=== PATIENT | female | born 1960 | race American Indian/Alaskan Native ===

== ENCOUNTER 2019-10-10 16:42 | Emergency (ER) | payer SELFPAY ==
--- NOTE | 2019-10-10 16:48 | Emergency Department Report ---
Blank Doc - Documentation Documentation: 59-year-old female that presents with unsteady gait and family member stated has difficulty speaking. Symptoms started 2 days ago. HX of Stroke. This initial assessment/diagnostic orders/clinical plan/treatment(s) is/are subject to change based on patient's health status, clinical progression and re- assessment by fellow clinical providers in the ED. Further treatment and workup at subsequent clinical providers discretion. Patient/guardians urged not to elope from the ED as their condition may be serious if not clinically assessed and managed. Initial orders include: 1- Patient sent to MAIN ED for further evaluation and treatment 2- stroke protocol ordered
[2019-10-10 17:44] LABS: Basophils # (Auto) 0.1 K/mm3 (0.0-0.1); Basophils % (Auto) 1.9 % (0.0-1.8); Eosinophils # (Auto) 0.1 K/mm3 (0.0-0.4); Eosinophils % (Auto) 1.4 % (0.0-4.3); Hematocrit 36.9 % (30.3-42.9); Hemoglobin 12.1 gm/dl (10.1-14.3); Lymphocytes # (Auto) 1.3 K/mm3 (1.2-5.4); Lymphocytes % (Auto) 32.3 % (13.4-35.0); Mean Corpuscular HGB Conc 33 % (30-34); Mean Corpuscular Volume 82 fl (79-97); Monocytes # (Auto) 0.3 K/mm3 (0.0-0.8); Monocytes % (Auto) 7.9 % (0.0-7.3); Platelet Count 197 K/mm3 (140-440); Red Cell Distribution Width 13.4 % (13.2-15.2)
[2019-10-10 17:56] LABS: INR 1.01 (0.87-1.13)
[2019-10-10 17:57] LABS: Partial Thromboplastin Time 30.2 Sec. (24.2-36.6); Thrombin Time 16.9 Sec. (15.1-19.6)
--- NOTE | 2019-10-10 17:59 | Cat Scan Report ---
CT HEAD WITHOUT CONTRAST INDICATION / CLINICAL INFORMATION: Stroke symptoms. TECHNIQUE: All CT scans at this location are performed using CT dose reduction for ALARA by means of automated e xposure control. COMPARISON: Head CT 05/13/2008 FINDINGS: HEMORRHAGE: No evidence of intracranial hemorrhage or extra-axial fluid collection. EXTRA-AXIAL SPACES: There is mild focal dilatation of cortical sulci along the convexity of the left parietal lobe secondary to encephalomalacia due to remote left MCA infarction. Elsewhere, the cortica l sulci are at the upper limit of normal for size. Sylvian fissures are mildly dilated. Basilar ciste rns have an unremarkable appearance. VENTRICULAR SYSTEM: Third and lateral ventricles are normal in size and configuration. There is no in dication of fourth ventricular dilatation. CEREBRAL PARENCHYMA: Periventricular and deep white matter lucency is observed. This is probably seco ndary to microvascular ischemic change. There is no indication of recent infarction. An area of encep halomalacia is present in the left parietal lobe secondary to remote left parietal infarction. MIDLINE SHIFT OR HERNIATION: There is no mass effect. CEREBELLUM / BRAINSTEM: Brainstem and cerebellum have an unremarkable appearance. INTRACRANIAL VESSELS:Calcified atherosclerotic plaque is present along the course of the cavernous se gments of both internal carotid arteries. Similar findings are seen at the distal vertebral arteries. ORBITS: Patient is status post bilateral cataract surgery. The orbits have an otherwise unremarkable appearance. SOFT TISSUES of HEAD: No significant abnormality. CALVARIUM: Evaluation of bone windows reveals no abnormalities. PARANASAL SINUSES / MASTOID AIR CELLS: Paranasal sinuses are free from inflammatory mucosal disease. Mastoid air cells are normally pneumatized. IMPRESSION: 1. Remote left parietal infarction. 2. No acute intracranial abnormality. Signer Name: Ezekiel Bourne MD Signed: 10/10/2019 5:55 PM Workstation Name: [id number]
[2019-10-10 18:03] LABS: Creatine Kinase MB 1.1 ng/mL (0.0-4.0)
[2019-10-10 18:05] LABS: Albumin 4.1 g/dL (3.9-5); Calcium 9.2 mg/dL (8.4-10.2)
--- NOTE | 2019-10-10 18:35 | Emergency Department Report ---
ED Neuro Deficit HPI - General Chief Complaint: Neuro Symptoms/Deficit Stated Complaint: HBP Time Seen by Provider: 10/10/19 16:47 Source: patient, family Mode of arrival: Ambulatory Limitations: Other - History of Present Illness Initial Comments: 59-year-old female with history of hypertension, diabetes, previous stroke presents to the ED for possible new stroke. Patient's sister, who is able to provide most of the patient's history, is at bedside. Although triage note states symptoms began a couple days ago, patient's sister has clarified that symptoms actually began approximately one month ago. Patient is certainly reported the patient had experienced slurred speech from her previous stroke. After speech therapy, patient had the beach improved greatly. However, approximately one month ago, patient's sister noticed that patient began s lurring her words again, having some memory loss, and seemed to not be picking up her feet appropriately when she walks. Patient's sister took her to see her primary care physician on September 17. At that time patient's PCPs stated that she felt that this patient probably had another stroke. Sister states she did an EKG on the patient in the office, and set her up to have a carotid study in 4 days, on October 14. patient's is concerned whether her to come to the ER today because she states patient has had 2 falls since her doctor's visit last month. There has been no worsening in patient's symptoms, she still has slurred speech, unsteady gait, and some memory loss. PCP: Dr Mouna Faustin -: month(s) (1) Location: speech History of same: Yes Severity: mild Improves With: none Worsens With: none On Anticoagulants: No Context: recent fall Associated Symptoms: denies other symptoms. denies: chest pain, fever/chills, headaches, nausea/vomiting, shortness of breath - Related Data Allergies/Adverse Reactions: Allergies Allergy/AdvReac Type Severity Reaction Status Date / Time erythromycin base Allergy Rash Verified 10/10/19 16:48 ED Review of Systems ROS: Stated complaint: HBP Other details as noted in HPI Comment: All other systems reviewed and negative Constitutional: denies: chills, fever Respiratory: denies: shortness of breath Cardiovascular: denies: chest pain Gastrointestinal: denies: vomiting Neurological: as per HPI. denies: headache ED Past Medical Hx - Past Medical History Previous Medical History?: Yes Hx Hypertension: Yes Hx CVA: Yes - Surgical History Past Surgical History?: No - Social History Smoking Status: Never Smoker Substance Use Type: None ED Neuro Physical Exam - General Limitations: Other General appearance: alert, in no apparent distress Suspected Stroke: Yes - Head Head exam: Present: atraumatic, normocephalic - Eye Eye exam: Present: normal appearance, EOMI - ENT ENT exam: Present: mucous membranes moist - Neck Neck exam: Present: normal inspection - Respiratory Respiratory exam: Present: normal lung sounds bilaterally. Absent: respiratory distress - Cardiovascular Cardiovascular Exam: Present: regular rate, normal rhythm - GI/Abdominal GI/Abdominal exam: Present: soft. Absent: distended, tenderness - Extremities Exam Extremities exam: Present: normal inspection - Neurological Exam Neurological exam: Present: alert, oriented X3 - NIHSS Assessment Interval: Baseline 1a. Level of Consciousness: alert/keenly responsive 1b. LOC Questions: answers both correctly 1c. LOC Commands: performs tasks correctly 2. Best Gaze: normal 3. Visual: no visual loss 4. Facial Palsy: normal symmetrical movement 5b. Motor Arm Right: no drift 5a. Motor Arm Left: no drift 6a. Motor Leg Left: drift 6b. Motor Leg Right: drift 7. Limb Ataxia: absent 8. Sensory: normal 9. Best Language: no aphasia 10. Dysarthria: mild/moderate dysarthria 11. Extinction/Inattention: no abnormality Total Score: 3 Stroke Severity: Minor Stroke - Psychiatric Psychiatric exam: Present: normal affect, normal mood - Skin Skin exam: Present: warm, dry, intact, normal color ED Course Vital Signs 10/10/19 10/10/19 10/10/19 16:49 17:30 18:00 Temperature 97.5 F L Pulse Rate 69 63 62 Respiratory 18 20 19 Rate Blood Pressure 194/83 165/76 170/87 Blood Pressure [Left] O2 Sat by Pulse 97 97 95 Oximetry 10/10/19 10/10/19 18:06 18:45 Temperature Pulse Rate 78 Respiratory 16 16 Rate Blood Pressure Blood Pressure 165/82 [Left] O2 Sat by Pulse 97 98 Oximetry - Lab Data Result diagrams: 10/10/19 17:27 10/10/19 17:27 Lab Results 10/10/19 10/10/19 10/10/19 Range/Units 17:27 17:27 17:27 WBC 4.1 L (4.5-11.0) K/mm3 RBC 4.50 (3.65-5.03) M/mm3 Hgb 12.1 (10.1-14.3) gm/dl Hct 36.9 (30.3-42.9) % MCV 82 (79-97) fl MCH 27 L (28-32) pg MCHC 33 (30-34) % RDW 13.4 (13.2-15.2) % Plt Count 197 (140-440) K/mm3 Lymph % (Auto) 32.3 (13.4-35.0) % [place] % (Auto) 7.9 H (0.0-7.3) % Eos % (Auto) 1.4 (0.0-4.3) % Baso % (Auto) 1.9 H (0.0-1.8) % Lymph # 1.3 (1.2-5.4) K/mm3 [place] # 0.3 (0.0-0.8) K/mm3 Eos # 0.1 (0.0-0.4) K/mm3 Baso # 0.1 (0.0-0.1) K/mm3 Seg Neutrophils % 56.5 (40.0-70.0) % Seg Neutrophils # 2.3 (1.8-7.7) K/mm3 PT 13.4 (12.2-14.9) Sec. INR 1.01 (0.87-1.13) APTT 30.2 (24.2-36.6) Sec. Thrombin Time 16.9 (15.1-19.6) Sec. Sodium (137-145) mmol/L Potassium (3.6-5.0) mmol/L Chloride (98-107) mmol/L Carbon Dioxide (22-30) mmol/L Anion Gap mmol/L BUN (7-17) mg/dL Creatinine (0.7-1.2) mg/dL Estimated GFR ml/min BUN/Creatinine Ratio % Glucose (65-100) mg/dL Calcium (8.4-10.2) mg/dL Total Bilirubin (0.1-1.2) mg/dL AST (5-40) units/L ALT (7-56) units/L Alkaline Phosphatase (35-129) units/L Total Creatine Kinase 67 (30-135) units/L CK-MB (CK-2) 1.1 (0.0-4.0) ng/mL CK-MB (CK-2) Rel Index 1.6 (0-4) Troponin T < 0.010 (0.00-0.029) ng/mL Total Protein (6.3-8.2) g/dL Albumin (3.9-5) g/dL Albumin/Globulin Ratio % 10/10/19 Range/Units 17:27 WBC (4.5-11.0) K/mm3 RBC (3.65-5.03) M/mm3 Hgb (10.1-14.3) gm/dl Hct (30.3-42.9) % MCV (79-97) fl MCH (28-32) pg MCHC (30-34) % RDW (13.2-15.2) % Plt Count (140-440) K/mm3 Lymph % (Auto) (13.4-35.0) % [place] % (Auto) (0.0-7.3) % Eos % (Auto) (0.0-4.3) % Baso % (Auto) (0.0-1.8) % Lymph # (1.2-5.4) K/mm3 [place] # (0.0-0.8) K/mm3 Eos # (0.0-0.4) K/mm3 Baso # (0.0-0.1) K/mm3 Seg Neutrophils % (40.0-70.0) % Seg Neutrophils # (1.8-7.7) K/mm3 PT (12.2-14.9) Sec. INR (0.87-1.13) APTT (24.2-36.6) Sec. Thrombin Time (15.1-19.6) Sec. Sodium 139 (137-145) mmol/L Potassium 3.4 L (3.6-5.0) mmol/L Chloride 96.5 L (98-107) mmol/L Carbon Dioxide 27 (22-30) mmol/L Anion Gap 19 mmol/L BUN 18 H (7-17) mg/dL Creatinine 1.3 H (0.7-1.2) mg/dL Estimated GFR 50 ml/min BUN/Creatinine Ratio 14 % Glucose 259 H (65-100) mg/dL Calcium 9.2 (8.4-10.2) mg/dL Total Bilirubin 0.30 (0.1-1.2) mg/dL AST 14 (5-40) units/L ALT 13 (7-56) units/L Alkaline Phosphatase 96 (35-129) units/L Total Creatine Kinase (30-135) units/L CK-MB (CK-2) (0.0-4.0) ng/mL CK-MB (CK-2) Rel Index (0-4) Troponin T (0.00-0.029) ng/mL Total Protein 7.3 (6.3-8.2) g/dL Albumin 4.1 (3.9-5) g/dL Albumin/Globulin Ratio 1.3 % - EKG Data -: EKG Interpreted by Me EKG shows normal: sinus rhythm, axis, intervals, QRS complexes Rate: normal Interpretation: nonspecific ST-T wave linnette - Radiology Data Radiology results: report reviewed, image reviewed - Medical Decision Making Pt w/ neuro deficits x 1 month, currently being worked up for them by her PCP. Has appt later this week to have carotid ultrasound done. Sister reports pt has fallen twice since she last saw her PCP. Denies any change or worsening of her symptoms. CT Head shows no intracranial bleed, does show remote infarct. Pt does not require admission as PCP is handling her work-up. Will d/c home. Advised to follow up w/ primary care. - Differential Diagnosis CVA, subdural hematoma, subarachnoid hemorrhage Critical care attestation.: If time is entered above; I have spent that time in minutes in the direct care of this critically ill patient, excluding procedure time. ED Disposition Clinical Impression: Slurred speech, Hypokalemia Disposition: DC-01 TO HOME OR SELFCARE Is pt being admited?: No Condition: Stable Instructions: Hypokalemia (ED), Self Care Measures After a Stroke (ED) Referrals: PRIMARY CARE, [Primary Care Provider] - 2-3 Days Time of Disposition: 18:39
[2019-10-10] MEDS ORDERED: POTASSIUM CHLORIDE ER 20 MEQ TAB PO ONE (18:37)
[2019-10-10 19:17] VITALS: BP 165/82
== END 2019-10-10 19:38 | disposition home or self-care (01) ==
LOC: ED 16:42
DX: R47.81 Slurred speech (principal); E87.6 Hypokalemia; I10 Essential (primary) hypertension; Z88.1 Allergy status to other antibiotic agents; Z86.73 Personal history of transient ischemic attack (TIA), and cerebral infarction without residual deficits
CPT/HCPCS: 36415; 70450; 80053; 82550; 82553; 84484; 85025; 85610; 85670; 85730; 93005; 93010